=== PATIENT | female | born 1990 | race Caucasian/White ===

== ENCOUNTER 2017-04-22 14:49 | Emergency (ER) | payer OTHER ==
[~2017-04-22] VITALS: Ht 175.3 cm; Wt 102.8 kg
[2017-04-22 14:56] VITALS: BP 130/78; PULSE 90; RESP 20; TEMP 98.3; O2SAT 99
--- NOTE | 2017-04-22 15:07 | PD ---
HPI Chief Complaint: Musculoskeletal Complaint Time Seen by Provider: 15:08 Travel History International Travel<30 days: No Contact w/Intl Traveler<30days: No Traveled to known affect area: No History of Present Illness HPI 27-year-old female here with left knee pain. She is a patient of Dr. Resendiz and has surgery scheduled for a 05/05/16 for meniscal tear. She presents the emergency department for continued pain in the left knee. She denies recent injury or trauma. She is not wearing a knee brace. She denies paresthesia or weakness in the leg. Symptom severity is moderate. Aggravated by weightbearing and relieved with rest. PFSH Past Medical History ?: Not LMP: currently Social History Alcohol Use: No Tobacco Use: No Allergies-Medications (Allergen,Severity, Reaction): Coded Allergies: cephalexin (Verified Allergy, Severe, burning and itching, 04/22/17) NSAIDS (Non-Steroidal Anti-Inflamma (Verified Adverse Reaction, Severe, ulcerative cholitis, 04/22/17) penicillin G (Unverified Adverse Reaction, Mild, RASH, 12/08/16) metronidazole (Unverified Adverse Reaction, Unknown, RASH, 12/08/16) Uncoded Allergies: MUSCLE RELAXERS (Allergy, Unknown, 02/06/14) Reported Meds & Prescriptions Reported Meds & Active Scripts Active No Active Prescriptions or Reported Medications Review of Systems Except as stated in HPI: all other systems reviewed are Neg General / Constitutional: No: Fever Musculoskeletal: Positive: Pain (left knee pain) Neurologic: No: Weakness Physical Exam Narrative GENERAL: Alert female in no distress. SKIN: Warm and dry. HEAD: Normocephalic. EYES: No injection or drainage. NECK: Supple, trachea midline. MUSCULOSKELETAL: No cyanosis, or edema. Tenderness over the anterior aspect of the knee. Joint is stable. 2+ dorsal pedis pulse brisk cap refill. Data Data Last Documented VS Vital Signs Date Time Temp Pulse Resp B/P (MAP) Pulse Ox O2 Delivery O2 Flow Rate FiO2 04/22/17 14:56 98.3 90 20 130/78 (95) 99 Orders Orders Ketorolac Inj (Toradol Inj) (04/22/17 15:15) Amilcar Bandage (04/22/17 15:08) MDM Medical Decision Making Medical Screen Exam Complete: Yes Emergency Medical Condition: Yes Differential Diagnosis Known left meniscal injury, knee pain, knee sprain Narrative Course 27-year-old female here with left knee pain. Patient has a known meniscal injury and has scheduled surgery on 05/05/[address] Resendiz. She reports the pain in the knee has persisted and it is not being controlled by the pain medication prescribed by Dr. Resendiz. She denies reinjury. The extremity is neurovascularly intact. She is not wearing the brace as instructed by Dr. Resendiz. She reports she is unable to take oral NSAIDs due to her colitis. She' ll be given a shot of Toradol here in the ER and instructed to follow-up with Dr. Resenidz for pain control Diagnosis Primary Impression: Left knee pain Qualified Codes: M25.562 - Pain in left knee Referrals: Korey Resendiz MD Additional Instructions: With the knee brace or Amilcar wrap as directed. Ice and elevate the extremity. Take the pain medication as prescribed. Follow-up with Dr. Resendiz Scripts No Active Prescriptions or Reported Meds Disposition: 01 DISCHARGE HOME Condition: Stable Rosi Barrow Apr 22, 2017 15:07
[2017-04-22] MEDS ORDERED: KETOROLAC TROMETHAMINE 60 MG/2 ML (IM) VIAL IM ONE (15:15)
== END 2017-04-22 15:36 | disposition home or self-care (01) ==
LOC: PHEFT 14:49
DX: M25.562 Pain in left knee (principal)
CPT/HCPCS: 96372; 99284; J1885